=== PATIENT | male | born 1945 | race Caucasian/White ===

== ENCOUNTER 2020-10-23 14:49 | Inpatient (IN) | payer MEDICARE, OTHER ==
[~2020-10-23 14:49] MED LIST: Heparin 1,000 UNITS/ML VIAL ONE; Iopamidol-370 76% 500 ML 1 ML ONE
[2020-10-23 15:38] LABS: Prothrombin Time 13.6 sec (12.0-14.7)
[2020-10-23 15:39] LABS: #Lymphocytes 0.9 thou/uL (1.20-3.40); #Monocytes 0.5 thou/uL (0.11-0.59); #Neutrophils 10.4 thou/uL (1.40-6.50); %Basophils 0.3 % (0.0-1.0); %Eosinophils 0.2 % (0.0-10.0); %Lymphocytes 7.5 % (21.0-51.0); %Monocytes 4.5 % (0.0-10.0); %Neutrophils 87.4 % (42.0-75.0); Hemoglobin 5.6 g/dL (14.0-18.0); Mean Corpuscular HGB CONC 29.2 g/dL (32.0-36.0); Mean Corpuscular Hemoglobin 26.1 pg (27.0-31.0); Mean Corpuscular Volume 89.3 fL (78.0-98.0); Mean Platelet Volume 6.5 fL (7.4-10.4); PTT 34.3 sec (22.9-36.1); Platelet Count 604 thou/uL (130-400); RBC Distribution Width 23.3 % (11.5-14.5); Red Blood Cell (RBC) Count 2.14 mill/uL (4.70-6.10); White Blood Cell (WBC) Count 11.9 thou/uL (4.8-10.8)
[2020-10-23 15:51] LABS: Anisocytosis MODERATE=16-30 cells (100X) (0-5/hpf); Hypochromia MODERATE=16-30 cells (100X) (0-5/hpf); MDiff Complete? YES; Ovalocytes SLIGHT = 2-5 cells (100X) (0-1/hpf); Platelet Morphology Comment Appears Increased; Polychromasia MODERATE = 3-4 cells (100X) (0-2/hpf); Reflex for Review?? YES; Schistocytes SLIGHT = 2-5 cells (100X) (0-1/hpf); Target Cells SLIGHT = 2-5 cells (100X) (0-1/hpf); Tear Drops SLIGHT = 2-5 cells (100X) (0-1/hpf)
[2020-10-23 15:52] LABS: ALT (SGPT) 9 U/L (8-55); AST (SGOT) 13 U/L (5-34); Albumin 2.2 g/dL (3.4-4.8); Alkaline Phosphatase 120 U/L (40-110); Anion Gap 13 mmol/L (10-20); BUN (Urea Nitrogen) 20 mg/dL (8.4-25.7); Bilirubin, Total 0.2 mg/dL (0.2-1.2); CK (CPK) 37 U/L (30-200); Calc. Creatinine Clearance 0 mL/min (70-130); Calcium 8.1 mg/dL (7.8-10.44); Carbon Dioxide 25 mmol/L (23-31); Chloride 104 mmol/L (98-107); Globulin 3.6 g/dL (2.4-3.5); Glucose 123 mg/dL (83-110); Magnesium 1.9 mg/dL (1.6-2.6); Potassium 4.5 mmol/L (3.5-5.1); Protein, Total 5.8 g/dL (5.8-8.1); Sodium 137 mmol/L (136-145)
[2020-10-23] MEDS ORDERED: Nystatin 500,000 UNITS/5 ML UDCUP PO SCH (16:15)
[2020-10-23 17:17] LABS: Bacteria/HPF 4+ HPF (None Seen); Bilirubin Negative (Negative); Blood, Urine 2+ (Negative); Clarity Extra Turbid (Clear); Glucose, Urine (Dipstick) Normal (Negative); Ketone, Urine Negative (Negative); Leukocyte 500 Leu/uL (Negative); Nitrite Negative (Negative); Protein, Urine (Dipstick) 70 mg/dL (Neg-Trace); RBC/HPF 21-50 HPF (0-3); Specific Gravity, Urine 1.025 (1.002-1.036); Squamous Epithelial None Seen HPF (0-3); Transitional Epithelial 0-3 HPF (None Seen); Urobilinogen Normal mg/dL (Less than 2); WBC/HPF Greater than 50 HPF (0-3); pH, Urine 5.5 (5.0-9.0)
[2020-10-23] MEDS ORDERED: Vancomycin 1 GM/200 ML BAG ONE (17:33)
[2020-10-23] MEDS ORDERED: Cefepime 2 GM VIAL ONE (17:33)
[2020-10-23] MEDS ORDERED: Fentanyl 100 MCG/2 ML VIAL ONE (17:56)
[2020-10-23 18:29] LABS: Lactic Acid 2.1 mmol/L (0.5-2.2)
[2020-10-23] MEDS ORDERED: Dextrose 5% in Water 1,000 ML IV PRN (21:36)
[2020-10-23] MEDS ORDERED: Dextrose 50% Abboject 50 ML SYRINGE SLOW IVP PRN (21:36)
[2020-10-23] MEDS ORDERED: Ondansetron ODT 4 MG TAB PO PRN (21:41)
[2020-10-23] MEDS ORDERED: HumaLOG 300 UNITS/3 ML VIAL SC PRN (21:52)
[2020-10-23] MEDS ORDERED: Morphine 4 MG/ML VIAL SLOW IVP PRN (21:52)
[2020-10-23] MEDS ORDERED: Pantoprazole 40 MG VIAL ONE (22:06)
[2020-10-23] MEDS ORDERED: HYDROcodone/Acetaminophen 10/325 mg Tablet ONE (22:06)
[2020-10-23] MEDS ORDERED: HYDROcodone/Acetaminophen 10/325 mg Tablet PO SCH (22:45)
[2020-10-23 22:58] LABS: Troponin I Less than 0.010 ng/mL (< 0.028)
[2020-10-23 23:24] LABS: Hemoglobin 8.3 g/dL (14.0-18.0)
[2020-10-24] MEDS: Ipratropium Bromide 2.5 ml Neb NEB SCH ×3 (01:36→07:53)
[2020-10-24] MEDS: HYDROcodone/Acetaminophen 10/325 mg Tablet PO PRN ×5 (01:41→21:13)
[2020-10-24] MEDS ORDERED: Nystatin 500,000 UNITS/5 ML UDCUP SSW SCH (02:45)
[2020-10-24] MEDS: VANCOMYCIN 1.25 GM/250 ML BAG 1.25 GM in Premix Bag 1 BAG IVPB SCH ×2 (03:08→17:37)
[2020-10-24] MEDS: Cefepime 2 GM in Sodium Chloride 0.9% 100 ML IVPB SCH ×2 (05:36→16:37)
[2020-10-24] MEDS ORDERED: Pantoprazole 40 MG VIAL IVP SCH (09:00)
[2020-10-24] MEDS ORDERED: Enoxaparin Sodium 40 MG/0.4 ML SYRINGE SC SCH (09:00)
[2020-10-24] MEDS ORDERED: Vancomycin HCl 1.25 GM in Sodium Chloride 0.9% 250 ML 250 ML IVPB SCH (09:00)
[2020-10-24] MEDS ORDERED: Losartan 25 MG TAB PO SCH (09:00)
[2020-10-24] MEDS ORDERED: EPINEPHrine 1 MG/10 ML Abboject SYRINGE ONE (09:34)
[2020-10-24] MEDS ORDERED: PROPOFOL 200 MG/20 ML VIAL ONE (09:34)
[2020-10-24] MEDS: FLUoxetine HCl 20 MG CAP PO SCH (09:46)
[2020-10-24] MEDS: Multivit, Therapeutic 1 TAB PO SCH (09:46)
[2020-10-24] MEDS: Furosemide 40 MG TAB PO SCH (09:46)
[2020-10-24] MEDS: Nystatin 500,000 UNITS/5 ML UDCUP SSW SCH ×4 (09:46→21:03)
[2020-10-24] MEDS: Baclofen 10 MG TAB PO SCH ×3 (09:46→21:03)
[2020-10-24] MEDS: metFORMIN 500 MG TAB PO SCH ×2 (09:51→17:37)
[2020-10-24] MEDS ORDERED: Ipratropium Bromide 2.5 ml Neb NEB SCH (11:00)
[2020-10-24] MEDS ORDERED: Albuterol Sulfate 1.25 MG/3 ML NEB INH PRN (11:00)
[2020-10-24 11:44] LABS: SARS-CoV-2 NAA Rapid Test Not Detected (NotDetected)
[2020-10-24 12:53] LABS: #Eosinphils 0.1 thou/uL (0.0-0.7); #Lymphocytes 0.5 thou/uL (1.20-3.40); #Monocytes 0.7 thou/uL (0.11-0.59); #Neutrophils 10.6 thou/uL (1.40-6.50); %Basophils 0.2 % (0.0-1.0); %Eosinophils 0.5 % (0.0-10.0); %Monocytes 5.9 % (0.0-10.0); %Neutrophils 89.3 % (42.0-75.0); Hemoglobin 8.5 g/dL (14.0-18.0); Mean Corpuscular HGB CONC 31.2 g/dL (32.0-36.0); Mean Corpuscular Hemoglobin 27.3 pg (27.0-31.0); Mean Corpuscular Volume 87.5 fL (78.0-98.0); Mean Platelet Volume 6.3 fL (7.4-10.4); Platelet Count 373 thou/uL (130-400); RBC Distribution Width 18.7 % (11.5-14.5); White Blood Cell (WBC) Count 11.8 thou/uL (4.8-10.8)
[2020-10-24 13:02] LABS: Anion Gap 11 mmol/L (10-20); BUN (Urea Nitrogen) 24 mg/dL (8.4-25.7); Calc. Creatinine Clearance 95 mL/min (70-130); Calcium 7.5 mg/dL (7.8-10.44); Carbon Dioxide 23 mmol/L (23-31); Chloride 105 mmol/L (98-107); Glucose 81 mg/dL (83-110); Potassium 3.6 mmol/L (3.5-5.1); Sodium 135 mmol/L (136-145)
[2020-10-24 13:03] LABS: Iron 90 ug/dL (65-175); Iron Binding Capacity, Total 116 mcg/dL (261-462)
[2020-10-24 13:28] LABS: Ferritin 231.69 ng/mL (22-322)
[2020-10-24] MEDS ORDERED: Fentanyl 100 MCG/2 ML VIAL ONE (14:24)
[2020-10-24] MEDS ORDERED: Ondansetron HCl/PF 4 MG/2 ML Vial IVP PRN (15:45)
[2020-10-24] MEDS ORDERED: Promethazine HCl 25 MG/ML VIAL SLOW IVP PRN (15:45)
[2020-10-24] MEDS ORDERED: Promethazine HCl 25 MG/ML VIAL IM PRN (15:45)
[2020-10-24 16:21] LABS: Hemoglobin 8.9 g/dL (14.0-18.0)
[2020-10-24] MEDS: Mometasone 200 MCG/Formoterol 5 MCG 120 PUFF INHALER INH SCH (16:56)
[2020-10-24] MEDS: Pantoprazole 80 MG in Sodium Chloride 0.9% 100 ML IVPB SCH (17:16)
[2020-10-24] MEDS: Atorvastatin Calcium 40 MG TAB PO SCH (21:03)
[2020-10-24] MEDS: Melatonin 3 MG TAB PO SCH ×2 (21:04→23:20)
[2020-10-24] MEDS: traZODone HCl 50 MG TAB PO SCH (21:04)
[2020-10-24] MEDS: Nystatin Ointment 15 GM TUBE TOP SCH (21:18)
[2020-10-25] LABS: Hemoglobin 7.8 g/dL (14.0-18.0)
[2020-10-25] MEDS: Pantoprazole 80 MG in Sodium Chloride 0.9% 100 ML IVPB SCH ×3 (01:30→20:31)
[2020-10-25] MEDS: VANCOMYCIN 1.25 GM/250 ML BAG 1.25 GM in Premix Bag 1 BAG IVPB SCH ×2 (02:59→15:50)
[2020-10-25] MEDS: Cefepime 2 GM in Sodium Chloride 0.9% 100 ML IVPB SCH ×2 (05:28→18:28)
[2020-10-25 06:18] LABS: ALT (SGPT) Less than 7 U/L (8-55); AST (SGOT) 10 U/L (5-34); Albumin 1.7 g/dL (3.4-4.8); Alkaline Phosphatase 92 U/L (40-110); Anion Gap 11 mmol/L (10-20); BUN (Urea Nitrogen) 25 mg/dL (8.4-25.7); Bilirubin, Total 0.4 mg/dL (0.2-1.2); Calc. Creatinine Clearance 90 mL/min (70-130); Calcium 7.4 mg/dL (7.8-10.44); Carbon Dioxide 22 mmol/L (23-31); Chloride 105 mmol/L (98-107); Globulin 2.8 g/dL (2.4-3.5); Glucose 89 mg/dL (83-110); Potassium 3.3 mmol/L (3.5-5.1); Protein, Total 4.5 g/dL (5.8-8.1); Sodium 135 mmol/L (136-145)
[2020-10-25] MEDS ORDERED: Potassium Chloride 20 MEQ TAB PO SCH (07:00)
[2020-10-25] MEDS: Mometasone 200 MCG/Formoterol 5 MCG 120 PUFF INHALER INH SCH ×2 (07:55→18:49)
[2020-10-25] MEDS: FLUoxetine HCl 20 MG CAP PO SCH (09:43)
[2020-10-25] MEDS: Furosemide 40 MG TAB PO SCH (09:43)
[2020-10-25] MEDS: Nystatin 500,000 UNITS/5 ML UDCUP SSW SCH ×4 (09:43→20:30)
[2020-10-25] MEDS: Multivit, Therapeutic 1 TAB PO SCH (09:43)
[2020-10-25] MEDS: Baclofen 10 MG TAB PO SCH ×3 (09:43→20:29)
[2020-10-25] MEDS: metFORMIN 500 MG TAB PO SCH ×2 (09:44→16:07)
[2020-10-25] MEDS: Nystatin Ointment 15 GM TUBE TOP SCH ×2 (09:44→20:33)
[2020-10-25] MEDS: HYDROcodone/Acetaminophen 10/325 mg Tablet PO PRN ×3 (09:50→20:30)
[2020-10-25 10:13] LABS: Hemoglobin 8.3 g/dL (14.0-18.0)
[2020-10-25] MEDS: traZODone HCl 50 MG TAB PO SCH (20:29)
[2020-10-25] MEDS: Atorvastatin Calcium 40 MG TAB PO SCH (20:29)
[2020-10-25] MEDS: Melatonin 3 MG TAB PO SCH (20:30)
[2020-10-25 23:43] LABS: Hemoglobin 6.9 g/dL (14.0-18.0)
[2020-10-26] MEDS: HYDROcodone/Acetaminophen 10/325 mg Tablet PO PRN ×6 (01:25→23:22)
[2020-10-26 02:11] LABS: Hemoglobin 8.1 g/dL (14.0-18.0); Mean Corpuscular HGB CONC 32.5 g/dL (32.0-36.0); Mean Corpuscular Hemoglobin 28.9 pg (27.0-31.0); Mean Platelet Volume 6.9 fL (7.4-10.4); Platelet Count 272 thou/uL (130-400); RBC Distribution Width 19.6 % (11.5-14.5); Red Blood Cell (RBC) Count 2.78 mill/uL (4.70-6.10); White Blood Cell (WBC) Count 6.7 thou/uL (4.8-10.8)
[2020-10-26 02:31] LABS: Vancomycin, Trough 46.7 ug/mL
[2020-10-26] MEDS: Cefepime 2 GM in Sodium Chloride 0.9% 100 ML IVPB SCH (05:34)
[2020-10-26] MEDS: Mometasone 200 MCG/Formoterol 5 MCG 120 PUFF INHALER INH SCH ×2 (07:25→19:19)
[2020-10-26] MEDS: Baclofen 10 MG TAB PO SCH ×3 (08:36→20:43)
[2020-10-26] MEDS: FLUoxetine HCl 20 MG CAP PO SCH (08:36)
[2020-10-26] MEDS: Furosemide 40 MG TAB PO SCH (08:36)
[2020-10-26] MEDS: metFORMIN 500 MG TAB PO SCH ×2 (08:36→16:36)
[2020-10-26] MEDS: Multivit, Therapeutic 1 TAB PO SCH (08:36)
[2020-10-26] MEDS: Nystatin Ointment 15 GM TUBE TOP SCH ×2 (08:37→20:44)
[2020-10-26] MEDS: Nystatin 500,000 UNITS/5 ML UDCUP SSW SCH ×4 (08:37→20:44)
[2020-10-26] MEDS: Pantoprazole 40 MG VIAL IVP SCH ×2 (08:43→20:45)
[2020-10-26] MEDS ORDERED: Pantoprazole 80 MG, Admixture Fee 1 EACH in Sodium Chloride 0.9% 100 ML IVPB SCH (08:45)
[2020-10-26 14:17] LABS: Hemoglobin 7.7 g/dL (14.0-18.0)
[2020-10-26] MEDS: traZODone HCl 50 MG TAB PO SCH (20:42)
[2020-10-26] MEDS: Atorvastatin Calcium 40 MG TAB PO SCH (20:42)
[2020-10-26] MEDS: Melatonin 3 MG TAB PO SCH (20:43)
[2020-10-27] MEDS: HYDROcodone/Acetaminophen 10/325 mg Tablet PO PRN ×4 (04:32→20:08)
[2020-10-27 04:35] LABS: ALT (SGPT) 10 U/L (8-55); AST (SGOT) 23 U/L (5-34); Albumin 1.8 g/dL (3.4-4.8); Alkaline Phosphatase 117 U/L (40-110); Anion Gap 17 mmol/L (10-20); BUN (Urea Nitrogen) 22 mg/dL (8.4-25.7); Bilirubin, Total 0.3 mg/dL (0.2-1.2); Calc. Creatinine Clearance 95 mL/min (70-130); Calcium 7.4 mg/dL (7.8-10.44); Carbon Dioxide 11 mmol/L (23-31); Chloride 114 mmol/L (98-107); Globulin 3.2 g/dL (2.4-3.5); Glucose 108 mg/dL (83-110); Potassium 4.1 mmol/L (3.5-5.1); Sodium 138 mmol/L (136-145)
[2020-10-27 05:43] LABS: #Eosinphils 0.1 thou/uL (0.0-0.7); #Lymphocytes 0.5 thou/uL (1.20-3.40); #Monocytes 0.7 thou/uL (0.11-0.59); #Neutrophils 6.2 thou/uL (1.40-6.50); %Basophils 0.1 % (0.0-1.0); %Eosinophils 1.3 % (0.0-10.0); %Lymphocytes 6.1 % (21.0-51.0); %Monocytes 9.8 % (0.0-10.0); %Neutrophils 82.7 % (42.0-75.0); Hemoglobin 8.3 g/dL (14.0-18.0); Mean Corpuscular HGB CONC 31.1 g/dL (32.0-36.0); Mean Corpuscular Hemoglobin 28.1 pg (27.0-31.0); Mean Corpuscular Volume 90.5 fL (78.0-98.0); Mean Platelet Volume 7.5 fL (7.4-10.4); Platelet Count 259 thou/uL (130-400); RBC Distribution Width 19.6 % (11.5-14.5); Red Blood Cell (RBC) Count 2.96 mill/uL (4.70-6.10); White Blood Cell (WBC) Count 7.5 thou/uL (4.8-10.8)
[2020-10-27] MEDS ORDERED: VANCOMYCIN 1.25 GM/250 ML BAG 1.25 GM in Premix Bag 1 BAG IVPB SCH (06:00)
[2020-10-27] MEDS: Mometasone 200 MCG/Formoterol 5 MCG 120 PUFF INHALER INH SCH ×2 (07:24→19:16)
[2020-10-27] MEDS: Furosemide 40 MG TAB PO SCH (08:48)
[2020-10-27] MEDS: FLUoxetine HCl 20 MG CAP PO SCH (08:48)
[2020-10-27] MEDS: Multivit, Therapeutic 1 TAB PO SCH (08:48)
[2020-10-27] MEDS: Nystatin 500,000 UNITS/5 ML UDCUP SSW SCH ×4 (08:48→20:27)
[2020-10-27] MEDS: metFORMIN 500 MG TAB PO SCH ×2 (08:48→16:11)
[2020-10-27] MEDS: Nystatin Ointment 15 GM TUBE TOP SCH ×2 (08:51→20:31)
[2020-10-27] MEDS: Pantoprazole 40 MG VIAL IVP SCH ×2 (08:51→20:28)
[2020-10-27] MEDS: Baclofen 10 MG TAB PO SCH ×3 (11:37→20:41)
[2020-10-27] MEDS: Atorvastatin Calcium 40 MG TAB PO SCH (20:10)
[2020-10-27] MEDS: Melatonin 3 MG TAB PO SCH (20:27)
[2020-10-27] MEDS: traZODone HCl 50 MG TAB PO SCH (20:29)
[2020-10-28] MEDS: HYDROcodone/Acetaminophen 10/325 mg Tablet PO PRN ×4 (03:09→23:08)
[2020-10-28] MEDS: Mometasone 200 MCG/Formoterol 5 MCG 120 PUFF INHALER INH SCH ×2 (07:10→19:12)
[2020-10-28] MEDS: metFORMIN 500 MG TAB PO SCH ×2 (09:24→17:36)
[2020-10-28] MEDS: Multivit, Therapeutic 1 TAB PO SCH (09:25)
[2020-10-28] MEDS: Nystatin 500,000 UNITS/5 ML UDCUP SSW SCH ×4 (09:25→21:10)
[2020-10-28] MEDS: FLUoxetine HCl 20 MG CAP PO SCH (09:25)
[2020-10-28] MEDS: Nystatin Ointment 15 GM TUBE TOP SCH ×2 (09:26→21:19)
[2020-10-28] MEDS: Pantoprazole 40 MG VIAL IVP SCH ×2 (09:26→21:11)
[2020-10-28] MEDS: Baclofen 10 MG TAB PO SCH ×3 (09:26→21:26)
[2020-10-28] MEDS: Furosemide 40 MG TAB PO SCH (09:26)
[2020-10-28] MEDS ORDERED: Lactated Ringer's 500 ML IV SCH (14:30)
[2020-10-28 15:26] LABS: #Eosinphils 0.1 thou/uL (0.0-0.7); #Lymphocytes 0.6 thou/uL (1.20-3.40); #Monocytes 0.6 thou/uL (0.11-0.59); #Neutrophils 4.6 thou/uL (1.40-6.50); %Basophils 0.1 % (0.0-1.0); %Lymphocytes 10.8 % (21.0-51.0); %Neutrophils 78.1 % (42.0-75.0); Hemoglobin 8.4 g/dL (14.0-18.0); Mean Corpuscular HGB CONC 32.6 g/dL (32.0-36.0); Mean Corpuscular Hemoglobin 29.1 pg (27.0-31.0); Mean Corpuscular Volume 89.3 fL (78.0-98.0); Mean Platelet Volume 7.7 fL (7.4-10.4); Platelet Count 250 thou/uL (130-400); Red Blood Cell (RBC) Count 2.88 mill/uL (4.70-6.10); White Blood Cell (WBC) Count 5.9 thou/uL (4.8-10.8)
[2020-10-28 15:48] LABS: ALT (SGPT) 12 U/L (8-55); AST (SGOT) 15 U/L (5-34); Albumin 1.8 g/dL (3.4-4.8); Alkaline Phosphatase 135 U/L (40-110); Anion Gap 13 mmol/L (10-20); BUN (Urea Nitrogen) 18 mg/dL (8.4-25.7); Bilirubin, Total 0.2 mg/dL (0.2-1.2); Calc. Creatinine Clearance 85 mL/min (70-130); Calcium 7.3 mg/dL (7.8-10.44); Carbon Dioxide 17 mmol/L (23-31); Chloride 106 mmol/L (98-107); Globulin 3.1 g/dL (2.4-3.5); Glucose 105 mg/dL (83-110); Potassium 3.1 mmol/L (3.5-5.1); Protein, Total 4.9 g/dL (5.8-8.1); Sodium 133 mmol/L (136-145)
[2020-10-28] MEDS: Atorvastatin Calcium 40 MG TAB PO SCH (21:11)
[2020-10-28] MEDS: Melatonin 3 MG TAB PO SCH (21:12)
[2020-10-28] MEDS: traZODone HCl 50 MG TAB PO SCH (21:12)
[2020-10-29] MEDS: HYDROcodone/Acetaminophen 10/325 mg Tablet PO PRN ×4 (04:00→21:26)
[2020-10-29 04:32] LABS: #Eosinphils 0.1 thou/uL (0.0-0.7); #Lymphocytes 0.9 thou/uL (1.20-3.40); #Monocytes 0.5 thou/uL (0.11-0.59); #Neutrophils 3.2 thou/uL (1.40-6.50); %Basophils 0.3 % (0.0-1.0); %Eosinophils 2.4 % (0.0-10.0); %Lymphocytes 18.3 % (21.0-51.0); %Monocytes 10.7 % (0.0-10.0); %Neutrophils 68.3 % (42.0-75.0); Hemoglobin 7.5 g/dL (14.0-18.0); Mean Corpuscular HGB CONC 32.4 g/dL (32.0-36.0); Mean Corpuscular Hemoglobin 28.9 pg (27.0-31.0); Mean Corpuscular Volume 89.4 fL (78.0-98.0); Mean Platelet Volume 7.2 fL (7.4-10.4); Platelet Count 275 thou/uL (130-400); Red Blood Cell (RBC) Count 2.57 mill/uL (4.70-6.10); White Blood Cell (WBC) Count 4.7 thou/uL (4.8-10.8)
[2020-10-29 04:53] LABS: ALT (SGPT) 11 U/L (8-55); AST (SGOT) 14 U/L (5-34); Albumin 1.7 g/dL (3.4-4.8); Alkaline Phosphatase 152 U/L (40-110); Anion Gap 10 mmol/L (10-20); BUN (Urea Nitrogen) 14 mg/dL (8.4-25.7); Bilirubin, Total 0.2 mg/dL (0.2-1.2); Calc. Creatinine Clearance 70 mL/min (70-130); Calcium 7.3 mg/dL (7.8-10.44); Carbon Dioxide 21 mmol/L (23-31); Chloride 106 mmol/L (98-107); Globulin 2.8 g/dL (2.4-3.5); Glucose 109 mg/dL (83-110); Protein, Total 4.5 g/dL (5.8-8.1); Sodium 134 mmol/L (136-145)
[2020-10-29] MEDS ORDERED: Potassium Chloride 20 MEQ TAB PO SCH ×2 (07:15→12:00)
[2020-10-29] MEDS: Mometasone 200 MCG/Formoterol 5 MCG 120 PUFF INHALER INH SCH ×2 (07:59→19:15)
[2020-10-29] MEDS: Nystatin 500,000 UNITS/5 ML UDCUP SSW SCH ×4 (09:43→21:25)
[2020-10-29] MEDS: Baclofen 10 MG TAB PO SCH ×3 (09:44→21:25)
[2020-10-29] MEDS: metFORMIN 500 MG TAB PO SCH ×2 (09:44→17:23)
[2020-10-29] MEDS: Multivit, Therapeutic 1 TAB PO SCH (09:46)
[2020-10-29] MEDS: FLUoxetine HCl 20 MG CAP PO SCH (09:46)
[2020-10-29] MEDS: Furosemide 40 MG TAB PO SCH (09:46)
[2020-10-29] MEDS: Pantoprazole 40 MG VIAL IVP SCH ×2 (09:48→21:25)
[2020-10-29] MEDS: Nystatin Ointment 15 GM TUBE TOP SCH ×2 (09:49→21:27)
[2020-10-29 16:20] LABS: Hemoglobin 7.7 g/dL (14.0-18.0)
[2020-10-29 19:14] LABS: H. pylori IgA ABS Less than 9.0 units (0.0-8.9); H. pylori IgG ABS 0.66 (0.00-0.79); H. pylori IgM ABS Less than 9.0 units (0.0-8.9)
[2020-10-29] MEDS: traZODone HCl 50 MG TAB PO SCH (21:26)
[2020-10-29] MEDS: Melatonin 3 MG TAB PO SCH (21:26)
[2020-10-29] MEDS: Atorvastatin Calcium 40 MG TAB PO SCH (21:26)
[2020-10-30] MEDS: HYDROcodone/Acetaminophen 10/325 mg Tablet PO PRN ×5 (02:08→21:08)
[2020-10-30 04:45] LABS: #Eosinphils 0.1 thou/uL (0.0-0.7); #Lymphocytes 0.9 thou/uL (1.20-3.40); #Monocytes 0.5 thou/uL (0.11-0.59); #Neutrophils 2.7 thou/uL (1.40-6.50); %Basophils 0.1 % (0.0-1.0); %Eosinophils 1.8 % (0.0-10.0); %Lymphocytes 22.2 % (21.0-51.0); %Neutrophils 63.9 % (42.0-75.0); Hemoglobin 7.3 g/dL (14.0-18.0); Mean Corpuscular HGB CONC 32.6 g/dL (32.0-36.0); Mean Corpuscular Hemoglobin 29.3 pg (27.0-31.0); Mean Corpuscular Volume 89.7 fL (78.0-98.0); Mean Platelet Volume 7.4 fL (7.4-10.4); Platelet Count 297 thou/uL (130-400); RBC Distribution Width 18.7 % (11.5-14.5); Red Blood Cell (RBC) Count 2.49 mill/uL (4.70-6.10); White Blood Cell (WBC) Count 4.2 thou/uL (4.8-10.8)
[2020-10-30 05:14] LABS: ALT (SGPT) 11 U/L (8-55); AST (SGOT) 12 U/L (5-34); Albumin 1.7 g/dL (3.4-4.8); Alkaline Phosphatase 139 U/L (40-110); Anion Gap 11 mmol/L (10-20); BUN (Urea Nitrogen) 14 mg/dL (8.4-25.7); Bilirubin, Total 0.2 mg/dL (0.2-1.2); Calc. Creatinine Clearance 101 mL/min (70-130); Calcium 7.2 mg/dL (7.8-10.44); Carbon Dioxide 21 mmol/L (23-31); Chloride 106 mmol/L (98-107); Globulin 2.7 g/dL (2.4-3.5); Glucose 135 mg/dL (83-110); Potassium 3.4 mmol/L (3.5-5.1); Protein, Total 4.4 g/dL (5.8-8.1); Sodium 135 mmol/L (136-145)
[2020-10-30] MEDS ORDERED: Potassium Chloride 20 MEQ TAB PO SCH (07:00)
[2020-10-30] MEDS: Mometasone 200 MCG/Formoterol 5 MCG 120 PUFF INHALER INH SCH ×2 (07:51→19:10)
[2020-10-30] MEDS: Pantoprazole 40 MG VIAL IVP SCH ×2 (07:53→21:07)
[2020-10-30] MEDS: Baclofen 10 MG TAB PO SCH ×3 (07:53→21:06)
[2020-10-30] MEDS: metFORMIN 500 MG TAB PO SCH ×2 (07:53→17:19)
[2020-10-30] MEDS: Nystatin 500,000 UNITS/5 ML UDCUP SSW SCH ×4 (07:53→21:07)
[2020-10-30] MEDS: FLUoxetine HCl 20 MG CAP PO SCH (07:54)
[2020-10-30] MEDS: Furosemide 40 MG TAB PO SCH (07:54)
[2020-10-30] MEDS: Multivit, Therapeutic 1 TAB PO SCH (07:56)
[2020-10-30] MEDS: Nystatin Ointment 15 GM TUBE TOP SCH ×2 (07:56→21:07)
[2020-10-30 16:39] LABS: Hemoglobin 8.1 g/dL (14.0-18.0)
[2020-10-30] MEDS: Atorvastatin Calcium 40 MG TAB PO SCH (21:06)
[2020-10-30] MEDS: Melatonin 3 MG TAB PO SCH (21:07)
[2020-10-30] MEDS: traZODone HCl 50 MG TAB PO SCH (21:07)
[2020-10-31] MEDS: HYDROcodone/Acetaminophen 10/325 mg Tablet PO PRN ×6 (01:09→22:28)
[2020-10-31 03:37] LABS: #Eosinphils 0.1 thou/uL (0.0-0.7); #Monocytes 0.6 thou/uL (0.11-0.59); %Basophils 0.5 % (0.0-1.0); %Eosinophils 1.5 % (0.0-10.0); %Lymphocytes 21.9 % (21.0-51.0); %Monocytes 13.2 % (0.0-10.0); %Neutrophils 62.9 % (42.0-75.0); Hemoglobin 7.1 g/dL (14.0-18.0); Mean Corpuscular HGB CONC 31.9 g/dL (32.0-36.0); Mean Corpuscular Hemoglobin 28.5 pg (27.0-31.0); Mean Corpuscular Volume 89.6 fL (78.0-98.0); Mean Platelet Volume 7.2 fL (7.4-10.4); Platelet Count 315 thou/uL (130-400); White Blood Cell (WBC) Count 4.7 thou/uL (4.8-10.8)
[2020-10-31 03:58] LABS: ALT (SGPT) 11 U/L (8-55); AST (SGOT) 17 U/L (5-34); Albumin 1.7 g/dL (3.4-4.8); Alkaline Phosphatase 116 U/L (40-110); Anion Gap 11 mmol/L (10-20); BUN (Urea Nitrogen) 15 mg/dL (8.4-25.7); Bilirubin, Total 0.2 mg/dL (0.2-1.2); Calc. Creatinine Clearance 91 mL/min (70-130); Calcium 7.3 mg/dL (7.8-10.44); Carbon Dioxide 21 mmol/L (23-31); Chloride 107 mmol/L (98-107); Glucose 91 mg/dL (83-110); Potassium 3.8 mmol/L (3.5-5.1); Protein, Total 4.7 g/dL (5.8-8.1); Sodium 135 mmol/L (136-145)
[2020-10-31] MEDS: Mometasone 200 MCG/Formoterol 5 MCG 120 PUFF INHALER INH SCH ×2 (07:03→18:47)
[2020-10-31] MEDS: FLUoxetine HCl 20 MG CAP PO SCH (08:18)
[2020-10-31] MEDS: metFORMIN 500 MG TAB PO SCH ×2 (08:18→17:24)
[2020-10-31] MEDS: Multivit, Therapeutic 1 TAB PO SCH (08:18)
[2020-10-31] MEDS: Baclofen 10 MG TAB PO SCH ×3 (08:18→20:44)
[2020-10-31] MEDS: Furosemide 40 MG TAB PO SCH (08:18)
[2020-10-31] MEDS: Pantoprazole 40 MG VIAL IVP SCH ×2 (08:19→20:43)
[2020-10-31] MEDS: Nystatin 500,000 UNITS/5 ML UDCUP SSW SCH ×4 (08:19→20:43)
[2020-10-31] MEDS: Nystatin Ointment 15 GM TUBE TOP SCH ×2 (08:20→20:47)
[2020-10-31 15:11] LABS: Hemoglobin 8.8 g/dL (14.0-18.0)
[2020-10-31] MEDS: Albuterol Sulfate 1.25 MG/3 ML NEB INH PRN (20:04)
[2020-10-31] MEDS: Atorvastatin Calcium 40 MG TAB PO SCH (20:44)
[2020-10-31] MEDS: Melatonin 3 MG TAB PO SCH (20:45)
[2020-10-31] MEDS: traZODone HCl 50 MG TAB PO SCH (20:45)
[2020-11-01 03:40] LABS: #Eosinphils 0.1 thou/uL (0.0-0.7); #Lymphocytes 1.1 thou/uL (1.20-3.40); #Monocytes 0.7 thou/uL (0.11-0.59); #Neutrophils 3.2 thou/uL (1.40-6.50); %Basophils 0.8 % (0.0-1.0); %Eosinophils 2.8 % (0.0-10.0); %Lymphocytes 21.7 % (21.0-51.0); %Monocytes 12.8 % (0.0-10.0); %Neutrophils 61.9 % (42.0-75.0); Hemoglobin 7.5 g/dL (14.0-18.0); Mean Corpuscular HGB CONC 33.8 g/dL (32.0-36.0); Mean Corpuscular Hemoglobin 30.2 pg (27.0-31.0); Mean Corpuscular Volume 89.2 fL (78.0-98.0); Platelet Count 269 thou/uL (130-400); RBC Distribution Width 18.2 % (11.5-14.5); Red Blood Cell (RBC) Count 2.48 mill/uL (4.70-6.10); White Blood Cell (WBC) Count 5.1 thou/uL (4.8-10.8)
[2020-11-01 04:00] LABS: ALT (SGPT) 10 U/L (8-55); AST (SGOT) 10 U/L (5-34); Albumin 1.6 g/dL (3.4-4.8); Alkaline Phosphatase 114 U/L (40-110); Anion Gap 9 mmol/L (10-20); BUN (Urea Nitrogen) 15 mg/dL (8.4-25.7); Bilirubin, Total 0.3 mg/dL (0.2-1.2); Calc. Creatinine Clearance 102 mL/min (70-130); Calcium 6.9 mg/dL (7.8-10.44); Carbon Dioxide 21 mmol/L (23-31); Chloride 107 mmol/L (98-107); Globulin 2.7 g/dL (2.4-3.5); Glucose 84 mg/dL (83-110); Potassium 3.2 mmol/L (3.5-5.1); Protein, Total 4.3 g/dL (5.8-8.1); Sodium 134 mmol/L (136-145)
[2020-11-01] MEDS: HYDROcodone/Acetaminophen 10/325 mg Tablet PO PRN ×4 (06:42→18:23)
[2020-11-01] MEDS: Mometasone 200 MCG/Formoterol 5 MCG 120 PUFF INHALER INH SCH ×2 (07:04→18:51)
[2020-11-01] MEDS ORDERED: Potassium Chloride 20 MEQ TAB PO SCH (07:15)
[2020-11-01] MEDS: FLUoxetine HCl 20 MG CAP PO SCH (09:03)
[2020-11-01] MEDS: metFORMIN 500 MG TAB PO SCH ×2 (09:03→16:08)
[2020-11-01] MEDS: Baclofen 10 MG TAB PO SCH ×3 (09:04→21:05)
[2020-11-01] MEDS: Nystatin 500,000 UNITS/5 ML UDCUP SSW SCH ×4 (09:06→21:06)
[2020-11-01] MEDS: Pantoprazole 40 MG VIAL IVP SCH ×2 (09:06→21:06)
[2020-11-01] MEDS: Furosemide 40 MG TAB PO SCH (09:06)
[2020-11-01] MEDS: Multivit, Therapeutic 1 TAB PO SCH (09:06)
[2020-11-01] MEDS: Nystatin Ointment 15 GM TUBE TOP SCH ×2 (09:07→21:06)
[2020-11-01] MEDS ORDERED: Magnesium Sulfate 3 GM in Sodium Chloride 0.9% 100 ML IVPB SCH (15:00)
[2020-11-01] MEDS: Atorvastatin Calcium 40 MG TAB PO SCH (21:04)
[2020-11-01] MEDS: traZODone HCl 50 MG TAB PO SCH (21:05)
[2020-11-01] MEDS: Melatonin 3 MG TAB PO SCH (21:06)
[2020-11-02 04:51] LABS: #Eosinphils 0.1 thou/uL (0.0-0.7); #Lymphocytes 0.6 thou/uL (1.20-3.40); #Monocytes 0.6 thou/uL (0.11-0.59); #Neutrophils 5.8 thou/uL (1.40-6.50); %Basophils 0.2 % (0.0-1.0); %Lymphocytes 8.2 % (21.0-51.0); %Monocytes 8.3 % (0.0-10.0); %Neutrophils 82.3 % (42.0-75.0); Mean Corpuscular HGB CONC 32.6 g/dL (32.0-36.0); Mean Corpuscular Hemoglobin 29.3 pg (27.0-31.0); Mean Corpuscular Volume 89.7 fL (78.0-98.0); Platelet Count 350 thou/uL (130-400); RBC Distribution Width 18.1 % (11.5-14.5); Red Blood Cell (RBC) Count 2.72 mill/uL (4.70-6.10); White Blood Cell (WBC) Count 7.1 thou/uL (4.8-10.8)
[2020-11-02] MEDS: HYDROcodone/Acetaminophen 10/325 mg Tablet PO PRN ×4 (04:55→22:09)
[2020-11-02 05:12] LABS: ALT (SGPT) 10 U/L (8-55); AST (SGOT) 13 U/L (5-34); Albumin 1.8 g/dL (3.4-4.8); Alkaline Phosphatase 118 U/L (40-110); Anion Gap 11 mmol/L (10-20); BUN (Urea Nitrogen) 14 mg/dL (8.4-25.7); Bilirubin, Total 0.4 mg/dL (0.2-1.2); Calc. Creatinine Clearance 100 mL/min (70-130); Calcium 7.5 mg/dL (7.8-10.44); Carbon Dioxide 22 mmol/L (23-31); Chloride 106 mmol/L (98-107); Globulin 2.9 g/dL (2.4-3.5); Glucose 96 mg/dL (83-110); Potassium 3.7 mmol/L (3.5-5.1); Protein, Total 4.7 g/dL (5.8-8.1); Sodium 135 mmol/L (136-145)
[2020-11-02] MEDS: Mometasone 200 MCG/Formoterol 5 MCG 120 PUFF INHALER INH SCH ×2 (07:14→19:13)
[2020-11-02] MEDS: Baclofen 10 MG TAB PO SCH ×3 (08:51→22:11)
[2020-11-02] MEDS: Furosemide 40 MG TAB PO SCH (08:51)
[2020-11-02] MEDS: metFORMIN 500 MG TAB PO SCH ×2 (08:51→16:36)
[2020-11-02] MEDS: FLUoxetine HCl 20 MG CAP PO SCH (08:51)
[2020-11-02] MEDS: Multivit, Therapeutic 1 TAB PO SCH (08:51)
[2020-11-02] MEDS: Nystatin 500,000 UNITS/5 ML UDCUP SSW SCH ×4 (08:51→22:11)
[2020-11-02] MEDS: Pantoprazole 40 MG VIAL IVP SCH ×2 (08:51→22:11)
[2020-11-02] MEDS: Nystatin Ointment 15 GM TUBE TOP SCH ×2 (08:53→22:11)
[2020-11-02] MEDS ORDERED: Morphine 4 MG/ML VIAL SLOW IVP PRN (17:13)
[2020-11-02] MEDS: traZODone HCl 50 MG TAB PO SCH (22:10)
[2020-11-02] MEDS: Atorvastatin Calcium 40 MG TAB PO SCH (22:10)
[2020-11-02] MEDS: Melatonin 3 MG TAB PO SCH (22:11)
[2020-11-02] MEDS ORDERED: cefTRIAXone\\ROCEPHIN 1 GM in Sodium Chloride 0.9% 100 ML IVPB SCH (22:45)
[2020-11-02] MEDS ORDERED: Azithromycin 500 MG in Sodium Chloride 0.9% 250 ML 250 ML IVPB SCH (23:15)
[2020-11-03] MEDS: GUAIFENESIN SF SOLN 200 MG/10 ML UDCUP PO PRN (00:10)
[2020-11-03] MEDS: HYDROcodone/Acetaminophen 10/325 mg Tablet PO PRN ×5 (02:02→22:42)
[2020-11-03] MEDS: Mometasone 200 MCG/Formoterol 5 MCG 120 PUFF INHALER INH SCH ×2 (06:16→18:25)
[2020-11-03 06:36] LABS: #Eosinphils 0.1 thou/uL (0.0-0.7); #Lymphocytes 0.8 thou/uL (1.20-3.40); #Monocytes 0.9 thou/uL (0.11-0.59); #Neutrophils 5.8 thou/uL (1.40-6.50); %Basophils 0.2 % (0.0-1.0); %Lymphocytes 10.6 % (21.0-51.0); %Monocytes 11.3 % (0.0-10.0); Hemoglobin 7.7 g/dL (14.0-18.0); Mean Corpuscular HGB CONC 31.9 g/dL (32.0-36.0); Mean Corpuscular Volume 90.9 fL (78.0-98.0); Mean Platelet Volume 7.5 fL (7.4-10.4); Platelet Count 306 thou/uL (130-400); RBC Distribution Width 18.1 % (11.5-14.5); Red Blood Cell (RBC) Count 2.66 mill/uL (4.70-6.10); White Blood Cell (WBC) Count 7.6 thou/uL (4.8-10.8)
[2020-11-03 06:50] LABS: ALT (SGPT) 9 U/L (8-55); AST (SGOT) 12 U/L (5-34); Albumin 1.7 g/dL (3.4-4.8); Alkaline Phosphatase 110 U/L (40-110); Anion Gap 12 mmol/L (10-20); BUN (Urea Nitrogen) 15 mg/dL (8.4-25.7); Bilirubin, Total 0.2 mg/dL (0.2-1.2); Calc. Creatinine Clearance 110 mL/min (70-130); Calcium 7.1 mg/dL (7.8-10.44); Carbon Dioxide 19 mmol/L (23-31); Chloride 105 mmol/L (98-107); Glucose 92 mg/dL (83-110); Potassium 3.4 mmol/L (3.5-5.1); Protein, Total 4.7 g/dL (5.8-8.1); Sodium 133 mmol/L (136-145)
[2020-11-03] MEDS: Baclofen 10 MG TAB PO SCH ×3 (08:32→20:40)
[2020-11-03] MEDS: Pantoprazole 40 MG VIAL IVP SCH ×2 (08:32→20:41)
[2020-11-03] MEDS: metFORMIN 500 MG TAB PO SCH ×2 (08:32→16:25)
[2020-11-03] MEDS: FLUoxetine HCl 20 MG CAP PO SCH (08:33)
[2020-11-03] MEDS: Furosemide 40 MG TAB PO SCH (08:33)
[2020-11-03] MEDS: Multivit, Therapeutic 1 TAB PO SCH (08:33)
[2020-11-03] MEDS: Nystatin Ointment 15 GM TUBE TOP SCH ×2 (08:34→20:41)
[2020-11-03] MEDS: Nystatin 500,000 UNITS/5 ML UDCUP SSW SCH ×4 (08:48→20:41)
[2020-11-03 09:39] LABS: Bacteria/HPF 1+ HPF (None Seen); Bilirubin Negative (Negative); Blood, Urine 2+ (Negative); Calcium Oxalate Crystals Rare HPF (None Seen); Clarity Turbid (Clear); Glucose, Urine (Dipstick) Normal (Negative); Ketone, Urine Negative (Negative); Leukocyte 500 Leu/uL (Negative); Nitrite Negative (Negative); Protein, Urine (Dipstick) 70 mg/dL (Neg-Trace); RBC/HPF 21-50 HPF (0-3); Specific Gravity, Urine 1.025 (1.002-1.036); Squamous Epithelial 0-3 HPF (0-3); Urobilinogen Normal mg/dL (Less than 2); WBC/HPF Greater than 50 HPF (0-3); pH, Urine 5.5 (5.0-9.0)
[2020-11-03 09:40] LABS: Urine Culture Reflex Yes Yes
[2020-11-03] MEDS: Atorvastatin Calcium 40 MG TAB PO SCH (20:39)
[2020-11-03] MEDS: traZODone HCl 50 MG TAB PO SCH (20:40)
[2020-11-03] MEDS: Melatonin 3 MG TAB PO SCH (20:40)
[2020-11-03] MEDS ORDERED: cefTRIAXone\\ROCEPHIN 1 GM in Sodium Chloride 0.9% 100 ML IVPB SCH (21:00)
[2020-11-03] MEDS ORDERED: Azithromycin 500 MG in Sodium Chloride 0.9% 250 ML 250 ML IVPB SCH (22:00)
[2020-11-03] MEDS: MEROPENEM 1 GM/50 ML 1 GM in Premix Bag 1 BAG IVPB SCH (22:43)
[2020-11-04] MEDS: MEROPENEM 1 GM/50 ML 1 GM in Premix Bag 1 BAG IVPB SCH ×3 (05:17→21:57)
[2020-11-04] MEDS: HYDROcodone/Acetaminophen 10/325 mg Tablet PO PRN ×4 (05:31→21:57)
[2020-11-04 06:49] LABS: #Eosinphils 0.1 thou/uL (0.0-0.7); #Lymphocytes 0.9 thou/uL (1.20-3.40); #Monocytes 0.8 thou/uL (0.11-0.59); %Eosinophils 1.8 % (0.0-10.0); %Monocytes 13.4 % (0.0-10.0); %Neutrophils 68.8 % (42.0-75.0); Mean Corpuscular HGB CONC 32.3 g/dL (32.0-36.0); Mean Corpuscular Hemoglobin 29.1 pg (27.0-31.0); Mean Corpuscular Volume 90.1 fL (78.0-98.0); Mean Platelet Volume 7.2 fL (7.4-10.4); Platelet Count 306 thou/uL (130-400); RBC Distribution Width 17.8 % (11.5-14.5); Red Blood Cell (RBC) Count 2.74 mill/uL (4.70-6.10); White Blood Cell (WBC) Count 5.8 thou/uL (4.8-10.8)
[2020-11-04 07:09] LABS: ALT (SGPT) 11 U/L (8-55); AST (SGOT) 16 U/L (5-34); Albumin 1.8 g/dL (3.4-4.8); Alkaline Phosphatase 117 U/L (40-110); Anion Gap 12 mmol/L (10-20); BUN (Urea Nitrogen) 17 mg/dL (8.4-25.7); Bilirubin, Total 0.2 mg/dL (0.2-1.2); Calc. Creatinine Clearance 107 mL/min (70-130); Calcium 7.4 mg/dL (7.8-10.44); Carbon Dioxide 22 mmol/L (23-31); Chloride 104 mmol/L (98-107); Glucose 78 mg/dL (83-110); Potassium 3.7 mmol/L (3.5-5.1); Protein, Total 4.8 g/dL (5.8-8.1); Sodium 134 mmol/L (136-145)
[2020-11-04] MEDS: Mometasone 200 MCG/Formoterol 5 MCG 120 PUFF INHALER INH SCH ×2 (07:19→19:09)
[2020-11-04] MEDS: FLUoxetine HCl 20 MG CAP PO SCH (08:20)
[2020-11-04] MEDS: Multivit, Therapeutic 1 TAB PO SCH (08:20)
[2020-11-04] MEDS: Nystatin 500,000 UNITS/5 ML UDCUP SSW SCH ×4 (08:20→20:14)
[2020-11-04] MEDS: Furosemide 40 MG TAB PO SCH (08:20)
[2020-11-04] MEDS: Pantoprazole 40 MG VIAL IVP SCH ×2 (08:20→20:14)
[2020-11-04] MEDS: metFORMIN 500 MG TAB PO SCH ×2 (08:20→16:17)
[2020-11-04] MEDS: Baclofen 10 MG TAB PO SCH ×3 (08:20→20:13)
[2020-11-04] MEDS: Nystatin Ointment 15 GM TUBE TOP SCH ×2 (08:21→20:21)
[2020-11-04] MEDS ORDERED: Magnesium Sulfate 4 GM in Sodium Chloride 0.9% 250 ML 250 ML IVPB SCH (08:45)
[2020-11-04] MEDS ORDERED: Magnesium Sulfate 20 GM/WATER 500 ML BAG IVPB SCH (08:45)
[2020-11-04] MEDS: traZODone HCl 50 MG TAB PO SCH (20:13)
[2020-11-04] MEDS: Atorvastatin Calcium 40 MG TAB PO SCH (20:13)
[2020-11-04] MEDS: Melatonin 3 MG TAB PO SCH (20:14)
[2020-11-05] MEDS: HYDROcodone/Acetaminophen 10/325 mg Tablet PO PRN ×6 (01:56→23:03)
[2020-11-05] MEDS: GUAIFENESIN SF SOLN 200 MG/10 ML UDCUP PO PRN ×2 (02:02→14:13)
[2020-11-05] MEDS: MEROPENEM 1 GM/50 ML 1 GM in Premix Bag 1 BAG IVPB SCH ×3 (05:44→22:22)
[2020-11-05 06:08] LABS: #Eosinphils 0.1 thou/uL (0.0-0.7); #Lymphocytes 0.9 thou/uL (1.20-3.40); #Monocytes 0.7 thou/uL (0.11-0.59); #Neutrophils 4.8 thou/uL (1.40-6.50); %Basophils 0.6 % (0.0-1.0); %Eosinophils 1.2 % (0.0-10.0); %Lymphocytes 14.2 % (21.0-51.0); %Monocytes 10.9 % (0.0-10.0); %Neutrophils 73.2 % (42.0-75.0); Hemoglobin 7.6 g/dL (14.0-18.0); Mean Corpuscular HGB CONC 31.9 g/dL (32.0-36.0); Mean Corpuscular Hemoglobin 28.8 pg (27.0-31.0); Mean Corpuscular Volume 90.3 fL (78.0-98.0); Platelet Count 328 thou/uL (130-400); RBC Distribution Width 17.5 % (11.5-14.5); Red Blood Cell (RBC) Count 2.65 mill/uL (4.70-6.10); White Blood Cell (WBC) Count 6.5 thou/uL (4.8-10.8)
[2020-11-05 06:29] LABS: ALT (SGPT) 9 U/L (8-55); AST (SGOT) 13 U/L (5-34); Albumin 1.8 g/dL (3.4-4.8); Alkaline Phosphatase 113 U/L (40-110); Anion Gap 10 mmol/L (10-20); BUN (Urea Nitrogen) 15 mg/dL (8.4-25.7); Bilirubin, Total 0.2 mg/dL (0.2-1.2); Calc. Creatinine Clearance 114 mL/min (70-130); Calcium 7.1 mg/dL (7.8-10.44); Carbon Dioxide 24 mmol/L (23-31); Chloride 103 mmol/L (98-107); Glucose 82 mg/dL (83-110); Potassium 3.4 mmol/L (3.5-5.1); Protein, Total 4.8 g/dL (5.8-8.1); Sodium 134 mmol/L (136-145)
[2020-11-05] MEDS: Mometasone 200 MCG/Formoterol 5 MCG 120 PUFF INHALER INH SCH ×2 (06:45→18:19)
[2020-11-05] MEDS ORDERED: Potassium Chloride 20 MEQ TAB PO SCH (07:45)
[2020-11-05] MEDS ORDERED: Ibuprofen 200 MG TAB PO SCH (08:15)
[2020-11-05] MEDS: metFORMIN 500 MG TAB PO SCH ×2 (08:49→17:18)
[2020-11-05] MEDS: Baclofen 10 MG TAB PO SCH ×3 (08:49→20:26)
[2020-11-05] MEDS: Furosemide 40 MG TAB PO SCH (08:49)
[2020-11-05] MEDS: FLUoxetine HCl 20 MG CAP PO SCH (08:49)
[2020-11-05] MEDS: Multivit, Therapeutic 1 TAB PO SCH (08:49)
[2020-11-05] MEDS: Pantoprazole 40 MG VIAL IVP SCH ×2 (08:50→20:24)
[2020-11-05] MEDS: Nystatin Ointment 15 GM TUBE TOP SCH ×2 (08:50→20:26)
[2020-11-05] MEDS: Nystatin 500,000 UNITS/5 ML UDCUP SSW SCH ×4 (09:28→20:26)
[2020-11-05] MEDS ORDERED: HYDROcodone/Acetaminophen 10/325 mg Tablet PO PRN (09:34)
[2020-11-05] MEDS ORDERED: Magnesium Sulfate 3 GM in Sodium Chloride 0.9% 100 ML IVPB SCH (09:45)
[2020-11-05] MEDS: Atorvastatin Calcium 40 MG TAB PO SCH (20:25)
[2020-11-05] MEDS: traZODone HCl 50 MG TAB PO SCH (20:25)
[2020-11-05] MEDS: Melatonin 3 MG TAB PO SCH (20:26)
[2020-11-06] MEDS: HYDROcodone/Acetaminophen 10/325 mg Tablet PO PRN ×6 (02:51→23:48)
[2020-11-06] MEDS: MEROPENEM 1 GM/50 ML 1 GM in Premix Bag 1 BAG IVPB SCH ×3 (05:12→21:35)
[2020-11-06 06:53] LABS: #Eosinphils 0.1 thou/uL (0.0-0.7); #Lymphocytes 1.1 thou/uL (1.20-3.40); #Monocytes 0.6 thou/uL (0.11-0.59); #Neutrophils 7.3 thou/uL (1.40-6.50); %Basophils 0.1 % (0.0-1.0); %Eosinophils 0.6 % (0.0-10.0); %Lymphocytes 11.7 % (21.0-51.0); %Monocytes 6.8 % (0.0-10.0); %Neutrophils 80.8 % (42.0-75.0); Hemoglobin 7.9 g/dL (14.0-18.0); Mean Corpuscular HGB CONC 32.1 g/dL (32.0-36.0); Mean Corpuscular Hemoglobin 29.1 pg (27.0-31.0); Mean Corpuscular Volume 90.6 fL (78.0-98.0); Mean Platelet Volume 6.8 fL (7.4-10.4); Platelet Count 351 thou/uL (130-400); RBC Distribution Width 17.7 % (11.5-14.5); Red Blood Cell (RBC) Count 2.72 mill/uL (4.70-6.10)
[2020-11-06 07:15] LABS: ALT (SGPT) 7 U/L (8-55); AST (SGOT) 14 U/L (5-34); Albumin 1.9 g/dL (3.4-4.8); Alkaline Phosphatase 115 U/L (40-110); Anion Gap 10 mmol/L (10-20); BUN (Urea Nitrogen) 13 mg/dL (8.4-25.7); Bilirubin, Total 0.2 mg/dL (0.2-1.2); Calc. Creatinine Clearance 115 mL/min (70-130); Calcium 7.3 mg/dL (7.8-10.44); Carbon Dioxide 24 mmol/L (23-31); Chloride 104 mmol/L (98-107); Globulin 2.9 g/dL (2.4-3.5); Glucose 90 mg/dL (83-110); Potassium 3.8 mmol/L (3.5-5.1); Protein, Total 4.8 g/dL (5.8-8.1); Sodium 134 mmol/L (136-145)
[2020-11-06] MEDS: Mometasone 200 MCG/Formoterol 5 MCG 120 PUFF INHALER INH SCH ×2 (07:20→18:36)
[2020-11-06] MEDS: FLUoxetine HCl 20 MG CAP PO SCH (08:51)
[2020-11-06] MEDS: metFORMIN 500 MG TAB PO SCH ×2 (08:51→17:08)
[2020-11-06] MEDS: Baclofen 10 MG TAB PO SCH ×3 (08:51→20:17)
[2020-11-06] MEDS: Furosemide 40 MG TAB PO SCH (08:51)
[2020-11-06] MEDS: Multivit, Therapeutic 1 TAB PO SCH (08:51)
[2020-11-06] MEDS: Nystatin 500,000 UNITS/5 ML UDCUP SSW SCH ×4 (08:53→20:28)
[2020-11-06] MEDS: Pantoprazole 40 MG VIAL IVP SCH ×2 (08:54→20:20)
[2020-11-06] MEDS: Nystatin Ointment 15 GM TUBE TOP SCH ×2 (08:56→20:28)
[2020-11-06 10:52] VITALS: BMI 26.2
[2020-11-06] MEDS: Albuterol Sulfate 1.25 MG/3 ML NEB INH PRN (16:32)
[2020-11-06 20:03] VITALS: TEMP 98.3
[2020-11-06] MEDS: Atorvastatin Calcium 40 MG TAB PO SCH (20:18)
[2020-11-06] MEDS: Melatonin 3 MG TAB PO SCH (20:18)
[2020-11-06] MEDS: traZODone HCl 50 MG TAB PO SCH (20:19)
[2020-11-07] MEDS: MEROPENEM 1 GM/50 ML 1 GM in Premix Bag 1 BAG IVPB SCH ×2 (05:24→13:51)
[2020-11-07] MEDS: HYDROcodone/Acetaminophen 10/325 mg Tablet PO PRN ×3 (05:27→13:57)
[2020-11-07] MEDS: Mometasone 200 MCG/Formoterol 5 MCG 120 PUFF INHALER INH SCH (05:31)
[2020-11-07] MEDS: Albuterol Sulfate 1.25 MG/3 ML NEB INH PRN (05:35)
[2020-11-07 07:06] LABS: #Eosinphils 0.1 thou/uL (0.0-0.7); #Lymphocytes 1.4 thou/uL (1.20-3.40); #Monocytes 0.6 thou/uL (0.11-0.59); #Neutrophils 4.6 thou/uL (1.40-6.50); %Basophils 0.4 % (0.0-1.0); %Eosinophils 1.1 % (0.0-10.0); %Lymphocytes 20.5 % (21.0-51.0); %Monocytes 8.6 % (0.0-10.0); %Neutrophils 69.4 % (42.0-75.0); Hemoglobin 7.9 g/dL (14.0-18.0); Mean Corpuscular HGB CONC 32.6 g/dL (32.0-36.0); Mean Corpuscular Hemoglobin 29.3 pg (27.0-31.0); Mean Corpuscular Volume 89.8 fL (78.0-98.0); Mean Platelet Volume 7.6 fL (7.4-10.4); Platelet Count 361 thou/uL (130-400); RBC Distribution Width 17.9 % (11.5-14.5); Red Blood Cell (RBC) Count 2.71 mill/uL (4.70-6.10); White Blood Cell (WBC) Count 6.7 thou/uL (4.8-10.8)
[2020-11-07 07:22] LABS: ALT (SGPT) 9 U/L (8-55); AST (SGOT) 14 U/L (5-34); Albumin 1.9 g/dL (3.4-4.8); Alkaline Phosphatase 128 U/L (40-110); Anion Gap 12 mmol/L (10-20); BUN (Urea Nitrogen) 13 mg/dL (8.4-25.7); Bilirubin, Total 0.2 mg/dL (0.2-1.2); Calc. Creatinine Clearance 119 mL/min (70-130); Calcium 7.4 mg/dL (7.8-10.44); Carbon Dioxide 23 mmol/L (23-31); Chloride 104 mmol/L (98-107); Globulin 3.1 g/dL (2.4-3.5); Glucose 92 mg/dL (83-110); Potassium 3.9 mmol/L (3.5-5.1); Sodium 135 mmol/L (136-145)
[2020-11-07] MEDS: FLUoxetine HCl 20 MG CAP PO SCH (08:35)
[2020-11-07] MEDS: metFORMIN 500 MG TAB PO SCH (08:35)
[2020-11-07] MEDS: Multivit, Therapeutic 1 TAB PO SCH (08:35)
[2020-11-07] MEDS: Furosemide 40 MG TAB PO SCH (08:35)
[2020-11-07] MEDS: Pantoprazole 40 MG VIAL IVP SCH (08:36)
[2020-11-07] MEDS: Nystatin 500,000 UNITS/5 ML UDCUP SSW SCH ×2 (08:36→13:51)
[2020-11-07] MEDS: Baclofen 10 MG TAB PO SCH ×2 (08:36→15:15)
[2020-11-07] MEDS: Nystatin Ointment 15 GM TUBE TOP SCH (08:36)
[2020-11-07 11:51] VITALS: BP 113/75
== END 2020-11-07 15:22 | DRG 871 ==
LOC: ERS 14:49 → ERHOLD 20:18 → IMCU/EMU 10-24 01:12 → 2NO 10-26 19:54 → T4-A 11-02 23:45
PROVIDERS: ADMIT Family Medicine; ATTEND Family Medicine
PROC: 30233N1 Transfusion of Nonautologous Red Blood Cells into Peripheral Vein, Percutaneous Approach (ICD-10-PCS; 2020-10-23)
PROC: 0W3P8ZZ Control Bleeding in Gastrointestinal Tract, Via Natural or Artificial Opening Endoscopic (ICD-10-PCS; principal; 2020-10-24)
PROC: 3E0G8GC Introduction of Other Therapeutic Substance into Upper GI, Via Natural or Artificial Opening Endoscopic (ICD-10-PCS; 2020-10-24)
PROC: 02HV33Z Insertion of Infusion Device into Superior Vena Cava, Percutaneous Approach (ICD-10-PCS; 2020-11-06)
PROC: B548ZZA Ultrasonography of Superior Vena Cava, Guidance (ICD-10-PCS; 2020-11-06)
DX: A41.51 Sepsis due to Escherichia coli [E. coli] (principal); K26.4 Chronic or unspecified duodenal ulcer with hemorrhage; L89.154 Pressure ulcer of sacral region, stage 4; Z20.822 Contact with and (suspected) exposure to COVID-19; J18.9 Pneumonia, unspecified organism; T83.511A Infection and inflammatory reaction due to indwelling urethral catheter, initial encounter; N39.0 Urinary tract infection, site not specified; G82.20 Paraplegia, unspecified; D62 Acute posthemorrhagic anemia; J44.1 Chronic obstructive pulmonary disease with (acute) exacerbation; F45.8 Other somatoform disorders; E11.9 Type 2 diabetes mellitus without complications; E78.5 Hyperlipidemia, unspecified; E87.6 Hypokalemia; E83.42 Hypomagnesemia; G89.29 Other chronic pain; M54.89 Other dorsalgia; L89.610 Pressure ulcer of right heel, unstageable; Y84.6 Urinary catheterization as the cause of abnormal reaction of the patient, or of later complication, without mention of misadventure at the time of the procedure; I50.9 Heart failure, unspecified; I11.0 Hypertensive heart disease with heart failure; Z79.899 Other long term (current) drug therapy; Z79.84 Long term (current) use of oral hypoglycemic drugs; Z79.1 Long term (current) use of non-steroidal anti-inflammatories (NSAID); Z93.2 Ileostomy status; Z90.49 Acquired absence of other specified parts of digestive tract; Z87.891 Personal history of nicotine dependence
CPT/HCPCS: 36415; 36416; 36430; 36569; 71045; 71275; 74174; 80048; 80053; 80202; 81001; 81003; 81015; 82274; 82550; 82607; 82728; 82746; 83540; 83550; 83605; 83735; 83880; 84145; 84443; 84484; 85014; 85018; 85025; 85060; 85610; 85652; 85730; 86140; 86850; 86900; 86901; 87040; 87077; 87086; 87149; 87186; 94640; 96365; 96366; 96367; 96374; 96375; 99292; C1751; C9113; J0171; J0456; J0692; J0696; J1644; J2185; J2270; J2704; J3010; J3370; J3475; J3490; J7050; J7620; P9016; Q9967; U0002